=== PATIENT | female | born 1955 | race Caucasian/White ===

== ENCOUNTER → 2017-05-28 | Outpatient (CLI) | payer BC ==
[~2017-05-28] MED LIST: ACETAMINOPHEN PO; BENTYL10 MG PO; DICYCLOMINE HCL20 MG PO; FISH OIL 1,0001 CAP PO; FLAGYL PO; FLORASTOR250 M1 PO; KEFLEX500 MG; NORCO 5/325 TAB1 TAB; PERCOCET; REQUIP2 MG PO; VICODIN 5/1 TAB 5/50 PO; WELLBUTRIN XL; ZOFRAN PO
--- NOTE | ~2017-05-28 | MY29 ---
[facility] A Service of [facility] RADIOLOGY TEXT RESULTS PATIENT: SAMARA MORE LOCATION: [facility] : 59 UNIT #: [id number] AGE: [address]: Marcelino Mcghee MD SEX: F ORDER DR: [id number] [facility] [address] [place], [place] [address] [id number] O MR#: [id number] Acc #: [id number] NAME: SAMARA MORE : 1955 SEX: F STUDY DATE/TIME: 05/28/2017 9:17 UNIT: [facility] ROOM: STUDY DESCRIPTION: MY PAO SCREENING W/ CAD BILAT Attending Physician: Marcelino Mcghee M.D. Referring Physician: Marcelino Mcghee M.D. Ordering Physician: Marcelino Mcghee M.D. Primary Care Physician: Estella Rodgers Aprn MEDICAL IMAGING REPORT This report is preliminary unless electronic signature is present EXAM Digital screening mammogram, 05/28/2017 HISTORY 62-year-old woman positive family history, aunt age 55. Annual screening. COMPARISON Mammograms date to 06/03/2010 with most recent 03/28/2016. FINDINGS Digital imaging of each breast was completed utilizing screening protocol. Review includes FDA-approved CAD device. Breast parenchyma remains moderately dense with parenchymal opacities stable upper outer quadrants of each breast. Mild parenchymal dominance upper hemisphere right breast and deep central left breast. Subareolar duct prominence is noted bilaterally. There are no suspicious mass characteristics. I see no interval occurring microcalcifications and no architectural deformity. IMPRESSION Stable benign mammogram. Annual screening recommended. Patients over the age of 40 are entered into a reminder system with target due date for the next mammogram. A result letter will also be sent to the patient. BIRADS: 2 Benign Finding Dictated by... Jimmy Acevedo M.D. THIS IS AN ELECTRONICALLY VERIFIED REPORT Jimmy Acevedo M.D. at 05/28/2017 1:08 PM TIM/senia [facility] A Service of [facility] RADIOLOGY TEXT RESULTS PATIENT: SAMARA MORE LOCATION: [facility] : 59 UNIT #: [id number] AGE: [address]: Marcelino Mcghee MD SEX: F ORDER DR: TD: 05/28/2017 12:16 JOB #: [id number] MEDICAL IMAGING REPORT Page 1 of 1 COPY
== END | disposition home or self-care (01) ==
LOC: CWCC 05-02 10:15
DX: Z12.31 Encounter for screening mammogram for malignant neoplasm of breast (principal); Z80.3 Family history of malignant neoplasm of breast
CPT/HCPCS: G0202

== ENCOUNTER 2017-06-18 20:14 | Emergency (ER) | payer BC ==
[~2017-06-18] VITALS: Ht 162.6 cm; Wt 57.6 kg
--- NOTE | ~2017-06-18 | CR260 ---
[facility] A Service of [facility] RADIOLOGY TEXT RESULTS PATIENT: SAMARA MORE LOCATION: [facility] : 59 UNIT #: [id number] AGE: [address]: JEAN LEZAMA APRN SEX: F ORDER DR: [id number] [facility] [place], [place] [address] [id number] E MR#: [id number] Acc #: [id number] NAME: SAMARA MORE : 1955 SEX: F STUDY DATE/TIME: 06/18/2017 21:04 UNIT: [facility] ROOM: STUDY DESCRIPTION: CR Toe 2 Views 5Th Lt Attending Physician: Jean Lezama Aprn Ordering Physician: Jean Lezama Aprn Primary Care Physician: Estella Rodgers Aprn MEDICAL IMAGING REPORT This report is preliminary unless electronic signature is present EXAM Left fifth digit series of the foot, 06/18/2017. INDICATION Pain and swelling. Hit the foot on a chair. TECHNIQUE Three views. COMPARISON No comparisons. FINDINGS The bones are osteoporotic. There is a subtle, hairline, nondisplaced, probable incomplete fracture through the proximal shaft proximal phalanx fifth digit best seen along its medial aspect on the frontal projection. No definite interarticular extension. No additional fracture. IMPRESSION Hairline, incomplete, nondisplaced fracture involving the proximal phalanx fifth digit. Dictated by... Clayton Barbosa M.D. THIS IS AN ELECTRONICALLY VERIFIED REPORT Clayton Barbosa M.D. at 06/19/2017 8:31 AM NATHALY/david TD: 06/19/2017 02:57 JOB #: [id number] [facility] A Service [facility] RADIOLOGY TEXT RESULTS PATIENT: SAMARA MORE LOCATION: [facility] : 59 UNIT #: [id number] AGE: [address]: JEAN LEZAMA APRN SEX: F ORDER DR: MEDICAL IMAGING REPORT Page 1 of 1 COPY
== END 2017-06-18 22:05 | disposition home or self-care (01) ==
LOC: CFTX 20:14 → CED 20:14 → CFTX 21:01
DX: S92.515A Nondisplaced fracture of proximal phalanx of left lesser toe(s), initial encounter for closed fracture (principal); F17.210 Nicotine dependence, cigarettes, uncomplicated; W22.8XXA Striking against or struck by other objects, initial encounter; Y92.009 Unspecified place in unspecified non-institutional (private) residence as the place of occurrence of the external cause
CPT/HCPCS: 29550; 73660; 99283